=== PATIENT | male | born 1985 | race Caucasian/White ===

== ENCOUNTER 2018-06-12 22:58 | Inpatient (IN) | payer BC ==
[~2018-06-12] VITALS: Ht 172.7 cm; Wt 122.5 kg
[2018-06-12 23:03] VITALS: Ht 172.7 cm; Wt 122.5 kg
[2018-06-13 00:47] LABS: BASOPHIL % 0.3 % (0-2); PLATELET COUNT 259 x10^3mcL (130-400); RED CELL DISTRIBUTION WIDTH 13.8 % (11.5-14.5)
[2018-06-13 00:49] LABS: CALCIUM 8.9 mg/dL (8.5-10.1); CARBON DIOXIDE 21.2 mmol/L (21-32); CHLORIDE SERUM 102 mmol/L (98-107); CREATININE SERUM 1.1 mg/dL (0.7-1.3); GFR1 > 60 mL/min; GLUCOSE SERUM 167 mg/dL (74-106); POTASSIUM SERUM 3.4 mmol/L (3.5-5.1); SODIUM SERUM 139 mmol/L (136-145)
[2018-06-13 00:58] LABS: ALBUMIN 3.8 g/dL (3.4-5.0); ALKALINE PHOSPHATASE 82 U/L (46-116); ALT/SGPT 47 U/L (16-63); AST/SGOT 29 U/L (15-37); BILIRUBIN TOTAL 0.4 mg/dL (0.20-1.00); FREE T4 1.03 ng/dL (0.76-1.46); MAGNESIUM 2.1 mg/dL (1.8-2.4); TOTAL PROTEIN, SERUM 8.2 g/dL (6.4-8.2)
[2018-06-13 01:04] LABS: microscopic required? NO
[2018-06-13 01:18] LABS: urine erythrocyte NEGATIVE (NEGATIVE)
[2018-06-13 01:37] LABS: AMPHETAMINE QUAL UR NONE DETECTED (See below)
[2018-06-13 04:59] VITALS: BP 144/83
[2018-06-13 05:10] LABS: CALCIUM 8.8 mg/dL (8.5-10.1); CHLORIDE SERUM 105 mmol/L (98-107); CREATININE SERUM 0.9 mg/dL (0.7-1.3); GFR1 > 60 mL/min; GLUCOSE SERUM 114 mg/dL (74-106); MAGNESIUM 2.3 mg/dL (1.8-2.4); POTASSIUM SERUM 3.7 mmol/L (3.5-5.1); SODIUM SERUM 140 mmol/L (136-145)
[2018-06-13 05:23] LABS: CARBON DIOXIDE 21.9 mmol/L (21-32)
[2018-06-13 05:29] LABS: BASOPHIL % 0.4 % (0-2); CHOLESTEROL/HDL RATIO 4.2; PHOSPHOROUS 3.2 mg/dL (2.5-4.9); PLATELET COUNT 274 x10^3mcL (130-400); RED CELL DISTRIBUTION WIDTH 12.9 % (11.5-14.5)
[2018-06-13 08:20] VITALS: BP 133/73
[2018-06-13 09:30] VITALS: BP 132/75
[2018-06-13 14:14] VITALS: BP 117/58
[2018-06-13 15:48] VITALS: BP 117/58
== END 2018-06-13 16:10 | disposition home or self-care (01) | DRG 880 ==
LOC: ED 22:58 → DU 06-13 03:40
PROVIDERS: Emergency Medicine; ADMIT Internal Medicine
DX: F41.9 Anxiety disorder, unspecified (principal); E87.4 Mixed disorder of acid-base balance; Z68.41 Body mass index [BMI] 40.0-44.9, adult; E87.6 Hypokalemia; I10 Essential (primary) hypertension; E66.9 Obesity, unspecified; L83 Acanthosis nigricans
CPT/HCPCS: 36600; 83880; 84439; J7030; Q9967